=== PATIENT | female | born 1970 | race Caucasian/White ===

== ENCOUNTER → 2016-08-27 | Outpatient (CLI) | payer BC ==
[~2016-08-27] MED LIST: ALPR.5T PO; ASP81TEC PO; CEPH-38 PO; CEPH500C PO; CYCL10TA9 PO; DILT120C PO; EXEM25TA4 PO; FISH1CAP15 PO; GEMF600T3 PO; HYDR-3583 PO; IBUP-15 PO; IBUP50DR PO; LEVO125T PO; METF-380 PO; MULT-608 PO; OMG1KC PO; ONDN4T PO; OXYC-12 PO; SITA100T PO; SITA1TAB6 PO; TAMO20TA2 PO; VNL37.5T PO
--- NOTE | 2016-08-27 13:12 | Diagnostic Imaging Report ---
INDICATION: Neck pain after the patient felt a pop six weeks ago. DISCUSSION: 3 views of the cervical spine were obtained, no comparison. There is mild straightening of the normal cervical lordosis which is commonly seen with positioning or muscle spasm. No significant degenerative disc disease or facet arthropathy is identified at any level. No fracture or subluxation. The paraspinal soft tissues are unremarkable. IMPRESSION: Negative 3 views of the cervical spine. Dictated by: Dictated on workstation # [id number]
== END ==
LOC: RAD 12:43
PROVIDERS: ATTEND Nurse Practitioner Family
DX: M54.2 Cervicalgia (principal)
CPT/HCPCS: 72040

== ENCOUNTER → 2016-09-16 | Outpatient (CLI) | payer BC ==
--- NOTE | 2016-09-17 19:07 | Diagnostic Imaging Report ---
Bilateral screening mammogram The current study was also evaluated with a Computer Aided Detection (CAD) system. INDICATION: Screening. No current complaints stated on the questionnaire. COMPARISON: 05/22/2015. FINDINGS: The breasts are composed of heterogeneously dense parenchyma which would decrease mammographic sensitivity. There are punctate calcifications seen. Allowing for technique and positional differences, no suspicious change is seen. IMPRESSION: Dense breasts with no definite change. ACR BI-RADS Category 2: Benign findings. Result letter will be mailed to the patient. Note: At least 10% of breast cancer is not imaged by mammography. Dictated on workstation # [id number]
== END ==
LOC: RAD 14:32
PROVIDERS: ATTEND Nurse Practitioner Family
DX: Z12.31 Encounter for screening mammogram for malignant neoplasm of breast (principal)
CPT/HCPCS: 77067

== ENCOUNTER → 2017-03-03 | Outpatient (CLI) | payer BC ==
--- NOTE | 2017-03-03 14:45 | Diagnostic Imaging Report ---
PROCEDURE: MR imaging cervical spine without contrast. TECHNIQUE: Multiplanar, multisequence MR imaging of the cervical spine was performed without contrast. INDICATION: Neck pain. History of breast cancer. COMPARISON: Cervical spine radiographs of 08/27/2016. FINDINGS: Normal alignment. Vertebral body heights are preserved. Normal bone marrow signal. Mild degenerative endplate changes at C3-C5. No abnormal signal in the cervical spinal cord. The visualized paravertebral soft tissues are unremarkable. C2-C3: No spinal canal or neuroforaminal narrowing. C3-C4: Left paracentral disc protrusion contacts the ventral cervical cord but results in only mild spinal canal narrowing. No neuroforaminal narrowing. C4-C5: Central disc protrusion results in moderate spinal canal narrowing. Uncovertebral and facet arthropathy result in moderate bilateral neuroforaminal narrowing. C5-C6: Left paracentral disc protrusion contacts the left ventral cervical cord and results in gxjy-lu-oyjfmfho spinal canal narrowing. No neuroforaminal narrowing. C6-C7: Broad-based disc and osteophyte complex results in only mild spinal canal narrowing. Uncovertebral hypertrophy results in moderate right neuroforaminal narrowing. No substantial left neuroforaminal narrowing. C7-T1: No spinal canal or neuroforaminal narrowing. IMPRESSION: 1. Spondylotic changes result in scattered ncut-jz-zjslbscu spinal canal narrowing, most marked at C4-C5. No abnormal signal in the cervical spinal cord. 2. Scattered mild and moderate neuroforaminal narrowing, detailed above. Dictated by: Dictated on workstation # [id number]
== END ==
LOC: RAD 11:28
PROVIDERS: ATTEND Nurse Practitioner Family
DX: M48.02 Spinal stenosis, cervical region (principal); M50.20 Other cervical disc displacement, unspecified cervical region; M47.812 Spondylosis without myelopathy or radiculopathy, cervical region; Z85.3 Personal history of malignant neoplasm of breast
CPT/HCPCS: 72141

== ENCOUNTER → 2018-08-21 | Outpatient (CLI) | payer BC ==
--- NOTE | 2018-08-22 12:17 | Diagnostic Imaging Report ---
EXAMINATION: Digital mammogram bilateral screening with 3D tomosynthesis and CAD. INDICATION: Screening. COMPARISON: This study is compared to the prior exams of 09/16/2016, 05/22/2015, and 11/02/2013. PERSONAL HISTORY: At this time, there are no current complaints. The patient did undergo a lumpectomy for carcinoma of the left breast in 2010. FINDINGS: The fibroglandular tissue in both breasts is heterogeneously dense. This does limit the sensitivity of this exam. The post surgical and post treatment changes involving the left breast seen previously are again evident and no different. There is no primary or secondary sign of malignancy noted. IMPRESSION: There is no evidence for malignancy. ACR BI-RADS Category 1: Negative. Result letter will be mailed to the patient. Note: At least 10% of breast cancer is not imaged by mammography. Dictated by: Dictated on workstation # [id number]
== END ==
LOC: RAD 10:04
PROVIDERS: ATTEND Nurse Practitioner Family
DX: Z12.31 Encounter for screening mammogram for malignant neoplasm of breast (principal); Z98.890 Other specified postprocedural states
CPT/HCPCS: 77067

== ENCOUNTER → 2019-02-22 | Outpatient (CLI) | payer BC | LOC: CARD 10:48 | PROVIDERS: ATTEND Internal Medicine Cardiovascular Disease | DX: E78.2 Mixed hyperlipidemia (principal); E11.9 Type 2 diabetes mellitus without complications; I10 Essential (primary) hypertension; R00.2 Palpitations | CPT/HCPCS: 93306 ==

== ENCOUNTER → 2019-07-25 | Outpatient (CLI) | payer BC | LOC: LABNPT 14:13 | PROVIDERS: ATTEND Family Medicine | DX: J02.9 Acute pharyngitis, unspecified (principal); R05 Cough; R68.83 Chills (without fever); Z85.3 Personal history of malignant neoplasm of breast | CPT/HCPCS: 87430; 87635; 87804 ==

== ENCOUNTER → 2021-09-23 | Outpatient (CLI) | payer BC ==
--- NOTE | 2021-09-24 12:01 | Diagnostic Imaging Report ---
Indication: Routine screening. Comparison is made with prior mammograms 08/21/2018 and 09/16/2016. 2-D and 3-D bilateral screening mammography was performed with CAD. Both breasts are heterogeneously dense, limiting the sensitivity of mammography. Post-therapeutic changes in the left breast are again noted. This appears to be stable. No mass or malignant-appearing microcalcifications are seen. There are benign calcifications present. Axillae are unremarkable. IMPRESSION: BI-RADS Category 2 No mammographic features suspicious for malignancy are identified. ACR BI-RADS Category 2: Benign findings. Result letter will be mailed to the patient. Note: At least 10% of breast cancer is not imaged by mammography. Dictated by: Dictated on workstation # [id number]
== END ==
LOC: RAD 15:45
PROVIDERS: ATTEND Nurse Practitioner Family
DX: Z12.31 Encounter for screening mammogram for malignant neoplasm of breast (principal)
CPT/HCPCS: 77063; 77067

== ENCOUNTER → 2021-10-09 | Outpatient (CLI) | payer BC ==
--- NOTE | 2021-10-09 15:01 | Diagnostic Imaging Report ---
INDICATION: Neck pain COMPARISON: 08/27/2016 FINDINGS: Frontal, lateral, swimmers and odontoid views of the cervical spine were submitted. The cervical spine is visualized up to the C7 level on the lateral projection. C7-T1 level is obscured. Static alignment shows straightening of normal lordotic curvature of the cervical spine. There is however no significant anteroretrolisthesis. Vertebral body heights are maintained. There is no evidence of fracture or bone destruction. No prevertebral soft tissue swelling is seen. No significant degenerative changes are noted. The open-mouth view demonstrates normal C1/C2 alignment. IMPRESSION: 1. Normal cervical spine series. Dictated by: Dictated on workstation # [id number]
== END ==
LOC: RAD 13:41
PROVIDERS: ATTEND Nurse Practitioner Family
DX: M54.2 Cervicalgia (principal)
CPT/HCPCS: 72040

== ENCOUNTER → 2022-04-28 | Outpatient (CLI) | payer BC ==
[~2022-04-28] MED LIST changes: +ASPIRIN E.C. 81 MG (ECOTRIN) TAB PO SCH; +CLOPIDOGREL 75 MG (PLAVIX) TABLET PO SCH; +NS IV 1000 ML 1,000 ML IV SCH
[2022-04-28 17:02] VITALS: BP 120/71
--- NOTE | 2022-04-28 17:02 | Cardiology Stress Test Report ---
Stress Test Report Date of Procedure/Referring: Date of Procedure: Apr 28, 2022 PCP Kenneth Lopez MD Admitting Physician Admitting Physician: Attending Physician: Rosmery Rivera MD Indications: CP Baseline Heart Rate: 94 Baseline Blood Pressure: Blood Pressure Systolic: 120 Blood Pressure Diastolic: 71 Baseline EKG: Baseline EKG: NSR Summary/Conclusion: Summary: In summary, the patient started exercising with a baseline heart rate, blood pressure and EKG mentioned above Patient was able to exercise for a total of 7.30 minutes on Viktor protocol, METs 9.1 Maximum heart rate 156 Maximum blood pressure 199/62 Stress EKG, Minimal nondiagnostic changes Recovery EKG , Return to baseline Conclusion: Fair exercise tolerance for a total of 7 minutes and 30 seconds on Viktor protocol 9.1 METS achieving 92% of maximal expected heart rate Hypertensive response to exercise with peak blood pressure 199/62 return to baseline during recovery Appropriate heart rate response to exercise with exercise-induced multiple short bursts of paroxysmal atrial tachycardia/short episodes of atrial fibrillation resolved late in recovery Nondiagnostic EKG changes with exercise return to baseline during recovery Recommend event monitor for 2 weeks Copy Copies To 1: KENNETH LOPEZ MD, BASHAR J MD Apr 28, 2022 17:02
== END ==
LOC: CARD 13:03
PROVIDERS: ATTEND Internal Medicine Cardiovascular Disease
DX: I11.9 Hypertensive heart disease without heart failure (principal); I25.10 Atherosclerotic heart disease of native coronary artery without angina pectoris
CPT/HCPCS: 93017; 93306

== ENCOUNTER → 2022-10-18 | Outpatient (CLI) | payer BC ==
[~2022-10-18] MED LIST changes: -ASPIRIN E.C. 81 MG (ECOTRIN) TAB PO SCH; -CLOPIDOGREL 75 MG (PLAVIX) TABLET PO SCH; -NS IV 1000 ML 1,000 ML IV SCH
--- NOTE | 2022-10-18 10:45 | Diagnostic Imaging Report ---
INDICATION: Routine screening. COMPARISON: 09/23/2021 and 08/21/2018. TECHNIQUE: 2D and 3D bilateral screening mammography was performed with CAD. FINDINGS: Both breasts are heterogeneously dense, limiting the sensitivity of mammography. Post-therapeutic changes in the left breast are stable. No mass or malignant-appearing microcalcifications are seen. There are benign calcifications present. The axillae are unremarkable. IMPRESSION: No mammographic features suspicious for malignancy are identified. ACR BI-RADS Category 2: Benign findings. Result letter will be mailed to the patient. Note: At least 10% of breast cancer is not imaged by mammography. Dictated by: Dictated on workstation # [id number]
== END ==
LOC: RAD 08:58
PROVIDERS: ATTEND Nurse Practitioner Family
DX: Z12.31 Encounter for screening mammogram for malignant neoplasm of breast (principal)
CPT/HCPCS: 77063; 77067

== ENCOUNTER → 2022-10-18 | Outpatient (CLI) | payer BC ==
[~2022-10-18] MED LIST changes: +CATHETER FLUSH 10 ML SYR IV PRN; +IOHEXOL 350 MG/ML 100 ML (OMNIPAQUE 350) VIAL IV ONE; +NS 100 ML (IVPB) BAG IV ONE
[2022-10-18 10:10] LABS: CREATININE SERUM 0.83 MG/DL (0.60-1.30)
--- NOTE | 2022-10-18 12:07 | Diagnostic Imaging Report ---
INDICATION: Hyperlipidemia and hypertension. CT coronary artery study performed with precontrast images followed by post-IV contrast images with EKG gating and 3-D reconstructions. Dose reduction protocol was used. There is no prior study for comparison. There are some areas of motion artifact. Visualized portions of the lung jo were clear. There are no enlarged mediastinal or hilar nodes. The entirety of the lungs are not included in the study. There is no pleural or pericardial fluid. Visualized portions of the aorta are not aneurysmal. There are no significant valvular calcifications. There are no abnormal filling defects in the cardiac chambers. The left main coronary artery and circumflex coronary artery and LAD are patent. There are no significant coronary calcifications. Right coronary artery is patent and without significant stenosis. IMPRESSION: Unremarkable CT cardiac study. Dictated by: Dictated on workstation # [id number]
== END ==
LOC: RAD 09:03
PROVIDERS: ATTEND Internal Medicine Cardiovascular Disease
DX: E78.2 Mixed hyperlipidemia (principal); I10 Essential (primary) hypertension; I48.0 Paroxysmal atrial fibrillation; I65.29 Occlusion and stenosis of unspecified carotid artery
CPT/HCPCS: 36415; 75572; 82565